=== PATIENT | female | born 1995 | race Caucasian/White ===

== ENCOUNTER 2022-06-13 14:23 | Emergency (ER) | payer MEDICAID ==
[~2022-06-13] VITALS: Ht 170.2 cm; Wt 100.7 kg
[~2022-06-13 14:23] MED LIST: CYCL10TA3 PO; IBUP800T27 PO
[2022-06-13 16:49] VITALS: BP 141/77
[2022-06-13] MEDS ORDERED: LIDO2SOL23 MT (17:30)
[2022-06-13] MEDS ORDERED: AZIT500T66 PO (17:30)
== END 2022-06-13 17:50 | disposition home or self-care (01) ==
LOC: ER 14:23
DX: J03.90 Acute tonsillitis, unspecified (principal); Z79.1 Long term (current) use of non-steroidal anti-inflammatories (NSAID); Z79.2 Long term (current) use of antibiotics; Z79.899 Other long term (current) drug therapy